=== PATIENT | male | born 1955 | race Caucasian/White ===

== ENCOUNTER → 2018-08-19 | Outpatient (CLI) | payer BC ==
--- NOTE | 2018-08-19 10:18 | RAD ---
EXAM: MRI RIGHT ELBOW DATE: 08/19/2018 8:15 AM CLINICAL INDICATION: CHRONIC WORSENING ELBOW PAIN, SUSPECTED LOOSE BODY FRAGMENTS, NO SX HX, NO PRIORS COMPARISON: Right elbow radiographs 07/13/2018 TECHNIQUE: Multiplanar multisequence MR imaging of the right elbow was performed without contrast. FINDINGS: Small right elbow joint effusion. A 7 mm joint body is suspected within the posterior olecranon fossa, although evaluation is limited given adjacent fat. Renal calculus or arthritis is seen with associated proliferative changes at the coronoid and olecranon process, as well as at the radial neck and lateral condyle. Intermittent chondral thinning most prominent laterally with subchondral cystic changes also seen. Old avulsion injury of the medial epicondyle at the posterior band ulnar collateral ligament attachment. No evidence for acute ulnar collateral ligament tear. There is mild edema at the common flexor attachment likely mild tendinosis. No discrete tear is identified. There is moderate edema and thickening at the lateral epicondyle attachment of the common extensor tendon origin consistent with moderate tendinosis. The radial collateral ligament and lateral ulnar collateral ligament are grossly intact. Biceps tendon is intact with normal signal and morphology. Triceps tendon is intact with normal signal and morphology. IMPRESSION: 1. 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 2. Small right elbow joint effusion with a small joint body suspected at the posterior olecranon fossa. 3. Moderate tendinosis at the common extensor tendon origin and mild tendinosis of the common flexor tendon origin. 4. Old medial epicondylar avulsion injury. Electronically signed by: Devan Cardozo MD (08/19/2018 10:15 AM) [facility]
== END | disposition home or self-care (01) ==
LOC: MRI 07:46
PROVIDERS: ATTEND Orthopaedic Surgery Sports Medicine
DX: M19.021 Primary osteoarthritis, right elbow (principal); M25.721 Osteophyte, right elbow; M77.01 Medial epicondylitis, right elbow; M25.421 Effusion, right elbow
CPT/HCPCS: 73221

== ENCOUNTER → 2018-12-30 | Outpatient (CLI) | payer BC ==
[2018-12-30 09:56] LABS: HEMATOCRIT 40.1 % (39.0-53.0); HEMOGLOBIN 13.5 g/dL (13.0-17.5); RED BLOOD COUNT 4.78 x10^6/uL (4.30-5.70); WHITE BLOOD COUNT 5.5 x10^3/uL (4.0-11.0)
[2018-12-30 10:18] LABS: ALBUMIN 3.6 g/dL (3.4-5.0); CALCIUM 8.9 mg/dL (8.5-10.1); POTASSIUM 3.9 mmol/L (3.5-5.1); TOTAL BILIRUBIN 0.6 mg/dL (0.2-1.0); TOTAL PROTEIN 7.1 g/dL (6.4-8.2)
[2018-12-30 10:19] LABS: CHOLESTEROL/HDL RATIO 4.3
[2018-12-30 20:11] LABS: HEMOGLOBIN A1C 5.7 % (4.8-5.6)
== END | disposition home or self-care (01) ==
LOC: LAB 09:33
PROVIDERS: ATTEND Family Medicine
DX: E78.5 Hyperlipidemia, unspecified (principal); R73.02 Impaired glucose tolerance (oral)
CPT/HCPCS: 36415; 80053; 80061; 83036; 85027

== ENCOUNTER 2019-07-01 04:11 | Emergency (ER) | payer BC ==
[~2019-07-01] VITALS: Ht 172.7 cm; Wt 90.7 kg
[2019-07-01 04:29] LABS: BILIRUBIN,URINE NEGATIVE (NEG); CLARITY,URINE CLEAR; COLOR,URINE YELLOW; NITRITE,URINE NEGATIVE (NEG); PH,URINE 5.5; PROTEIN,URINE NEGATIVE (NEG-TRACE)
[2019-07-01 04:34] LABS: BASO # 0.1 x10^3/uL (0.0-0.2); BASO % 1 % (0-3); EOS # 0.2 x10^3/uL (0.0-0.7); EOS % 3 % (0-3); HEMATOCRIT 42.4 % (39.0-53.0); HEMOGLOBIN 14.4 g/dL (13.0-17.5); LYMPH # 1.5 x10^3/uL (1.0-4.8); LYMPH % 22 % (24-48); MEAN CORPUSCULAR HEMOGLOBIN 28 pg (25-35); MEAN CORPUSCULAR HGB CONC 34 g/dL (31-37); MEAN CORPUSCULAR VOLUME 84 fL (79-100); MONO # 0.4 x10^3/uL (0.0-1.1); MONO % 6 % (0-9); NEUT # 4.5 x10^3/uL (1.8-7.7); NEUT % 69 % (31-73); PLATELET COUNT 145 x10^3/uL (140-400); RED BLOOD COUNT 5.09 x10^6/uL (4.30-5.70); RED CELL DISTRIBUTION WIDTH 13.8 % (11.5-14.5); WHITE BLOOD COUNT 6.6 x10^3/uL (4.0-11.0)
[2019-07-01 04:40] LABS: SQUAMOUS EPITHELIAL CELL,UR OCC /LPF
[2019-07-01 04:42] LABS: CALCIUM 8.8 mg/dL (8.5-10.1); CREATININE 1.1 mg/dL (0.7-1.3); GFR 67.8; POTASSIUM 3.6 mmol/L (3.5-5.1)
[2019-07-01 04:42] LABS: BACTERIA,URINE 0 /HPF (0-FEW); RBC,URINE 0 /HPF (0-2)
[2019-07-01 04:47] LABS: ALBUMIN 3.8 g/dL (3.4-5.0); ALBUMIN/GLOBULIN RATIO 1.2 (1.0-1.7); TOTAL BILIRUBIN 0.5 mg/dL (0.2-1.0)
[2019-07-01] MEDS ORDERED: MORPHINE SULFATE 4 MG/ML VIAL. IV ONE (05:00)
--- NOTE | 2019-07-01 05:11 | RAD ---
EXAM: CT Abdomen and Pelvis without IV contrast CLINICAL HISTORY: Left flank pain, history of nephrolithiasis.. COMPARISON: none TECHNIQUE: Helical CT of the abdomen and pelvis without intravenous contrast. Axial, coronal and sagittal reformatted images were generated. PQRS compliance statement - One or more of the following individualized dose reduction techniques were utilized for this study: 1. Automated exposure control 2. Adjustment of the mA and/or kV according to patient size 3. Use of iterative reconstruction technique FINDINGS: Lack of intravenous contrast limits evaluation of solid organs, vasculature, and lymph nodes. Lower chest: Lung bases are clear. Abdomen and Pelvis: Hepatic hypoattenuation may be seen with hepatic steatosis. Cholecystectomy clips are seen. No biliary ductal dilatation. Pancreas is unremarkable. Spleen is normal in appearance. Adrenal glands are normal. No focal renal lesion. Punctate left lower pole nonobstructing renal calculus. No hydronephrosis or hydroureter. Mild bladder wall thickening may be seen with cystitis. Moderate to large volume colonic stool content is seen. No abdominal or pelvic ascites. No abdominal or pelvic lymphadenopathy. No evidence for bowel obstruction. Aorta is normal in caliber with intermittent atherosclerotic calcifications. Bones: Multilevel degenerative changes of the spine are seen. No aggressive osseous lesion. IMPRESSION: 1. Punctate nonobstructing left lower pole renal calculus. No definite ureteral or bladder calculus. 2. Mild bladder wall thickening may be seen with cystitis. 3. No evidence of bowel obstruction. 4. Hepatic hypoattenuation likely hepatic steatosis. Electronically signed by: Devan Cardozo MD (07/01/2019 5:08 AM) [facility]
[2019-07-01 05:21] VITALS: BP 156/79
[2019-07-01] MEDS ORDERED: CEPH500C PO (05:26)
[2019-07-01] MEDS ORDERED: GABA300C18 PO (05:26)
--- NOTE | 2019-07-01 05:31 | PHYS DOC ---
Past Medical History Past Medical History: High Cholesterol, Other Additional Past Medical Histor: bilateral carpal tunnel, bulging discs, bone spur Past Surgical History: Appendectomy, Cholecystectomy, Tonsillectomy, Other Additional Past Surgical Histo: left carpal tunnel release Alcohol Use: Occasionally Drug Use: None Adult General Chief Complaint Chief Complaint: FLANK PAIN HPI HPI Patient is a 64 year old male who presents with left flank pain onset about 2 days ago radiates around to the groin area, starts in the back is have a history of chronic pain he is on a fentanyl patch he is on oral breakthrough pain medication he does have bad back and also bilateral carpal tunnel no vomiting he does feel nauseous no trouble urinating no prior history of kidney stone has never really had pain in this location before no acute injury noted All other ROS neg unless otherwise noted in HPI Review of Systems Review of Systems SEE ABOVE Current Medications Current Medications Current Medications Medications (Trade) Dose Ordered Sig/Tesfaye Start Time Stop Time Status Last Admin Dose Admin Morphine Sulfate (Morphine Sulfate) 4 mg 1X ONCE 07/01/19 05:00 07/01/19 05:01 DC 07/01/19 04:52 4 MG Allergies Allergies Allergies Coded Allergies Type Severity Reaction Last Updated Verified acetaminophen Allergy Mild nausea and vomiting 07/01/19 Yes ketorolac Allergy Mild nausea and vomiting 07/01/19 Yes meperidine Allergy Mild nausea and vomiting 07/01/19 Yes oxycodone Allergy Mild nausea and vomiting 07/01/19 Yes Physical Exam Physical Exam see above Constitutional: Well developed, well nourished, no acute distress, non-toxic appearance. [] HENT: Normocephalic, atraumatic, bilateral external ears normal, oropharynx moist, no oral exudates, nose normal. [] Eyes: PERRLA, EOMI, conjunctiva normal, no discharge. [] Neck: Normal range of motion, no tenderness, supple, no stridor. [] Cardiovascular:Heart rate regular rhythm, no murmur [] Lungs & Thorax: Bilateral breath sounds clear to auscultation [] Abdomen: Bowel sounds normal, soft, MILD LEFT LATERAL MID ABDOMINAL TTP NOTEDno masses, no pulsatile masses. [] Skin: Warm, dry, no erythema, no rash. [] Back: MILD LEFT CVA TTP NOTED Extremities: No tenderness, no cyanosis, no clubbing, ROM intact, no edema. [] Neurologic: Alert and oriented X 3, normal motor function, normal sensory function, no focal deficits noted. [] Psychologic: Affect normal, judgement normal, mood normal. [] Current Patient Data Vital Signs Vital Signs Date Time Temp Pulse Resp B/P (MAP) Pulse Ox O2 Delivery O2 Flow Rate FiO2 07/01/19 04:52 Room Air 07/01/19 04:15 98.9 72 20 183/92 (122) 97 98.9 Lab Values Laboratory Tests Test 07/01/19 04:15 07/01/19 04:30 Urine Collection Type Unknown Urine Color Yellow Urine Clarity Clear Urine pH 5.5 Urine Specific [place] 1.015 Urine Protein Negative mg/dL (NEG-TRACE) Urine Glucose (UA) Negative mg/dL (NEG) Urine Ketones (Stick) Negative mg/dL (NEG) Urine Blood Negative (NEG) Urine Nitrite Negative (NEG) Urine Bilirubin Negative (NEG) Urine Urobilinogen Dipstick 1.0 mg/dL (0.2 mg/dL) Urine Leukocyte Esterase Negative (NEG) Urine RBC 0 /HPF (0-2) Urine WBC 1-4 /HPF (0-4) Urine Squamous Epithelial Cells Occ /LPF Urine Bacteria 0 /HPF (0-FEW) Urine Mucus Mod /LPF White Blood Count 6.6 x10^3/uL (4.0-11.0) Red Blood Count 5.09 x10^6/uL (4.30-5.70) Hemoglobin 14.4 g/dL (13.0-17.5) Hematocrit 42.4 % (39.0-53.0) Mean Corpuscular Volume 84 fL (79-100) Mean Corpuscular Hemoglobin 28 pg (25-35) Mean Corpuscular Hemoglobin Concent 34 g/dL (31-37) Red Cell Distribution Width 13.8 % (11.5-14.5) Platelet Count 145 x10^3/uL (140-400) Neutrophils (%) (Auto) 69 % (31-73) Lymphocytes (%) (Auto) 22 % (24-48) L Monocytes (%) (Auto) 6 % (0-9) Eosinophils (%) (Auto) 3 % (0-3) Basophils (%) (Auto) 1 % (0-3) Neutrophils # (Auto) 4.5 x10^3/uL (1.8-7.7) Lymphocytes # (Auto) 1.5 x10^3/uL (1.0-4.8) Monocytes # (Auto) 0.4 x10^3/uL (0.0-1.1) Eosinophils # (Auto) 0.2 x10^3/uL (0.0-0.7) Basophils # (Auto) 0.1 x10^3/uL (0.0-0.2) Sodium Level 142 mmol/L (136-145) Potassium Level 3.6 mmol/L (3.5-5.1) Chloride Level 105 mmol/L (98-107) Carbon Dioxide Level 26 mmol/L (21-32) Anion Gap 11 (6-14) Blood Urea Nitrogen 12 mg/dL (8-26) Creatinine 1.1 mg/dL (0.7-1.3) Estimated GFR (Cockcroft-Gault) 67.8 BUN/Creatinine Ratio 11 (6-20) Glucose Level 112 mg/dL (70-99) H Calcium Level 8.8 mg/dL (8.5-10.1) Total Bilirubin 0.5 mg/dL (0.2-1.0) Aspartate Amino Transferase (AST) 33 U/L (15-37) Alanine Aminotransferase (ALT) 55 U/L (16-63) Alkaline Phosphatase 84 U/L (46-116) Total Protein 7.0 g/dL (6.4-8.2) Albumin 3.8 g/dL (3.4-5.0) Albumin/Globulin Ratio 1.2 (1.0-1.7) Laboratory Tests 07/01/19 04:30 Laboratory Tests 07/01/19 04:30 EKG EKG [] Radiology/Procedures Radiology/Procedures [] Impressions: IMPRESSION: 1. Punctate nonobstructing left lower pole renal calculus. No definite ureteral or bladder calculus. 2. Mild bladder wall thickening may be seen with cystitis. 3. No evidence of bowel obstruction. 4. Hepatic hypoattenuation likely hepatic steatosis. Electronically signed by: Devan Cardozo MD (07/01/2019 5:08 AM) [facility] Course & Med Decision Making Course & Med Decision Making Pertinent Labs and Imaging studies reviewed. (See chart for details) []64-year-old male chronic pain on fentanyl patches as well as other pain medication at home presenting with left flank pain some concern for kidney stone CT scan noted above no ureteral stone identified. White blood cells in the urine 1-4 with possible cystitis finding on CT I think given symptomatology w arrants antibiotics in case of clinical UTI. Unclear as exact etiology of pain could be referred pain from the back try gabapentin asked him to follow up with primary care doctor within 1 week for reevaluation of pain. Patient is neurologically intact at this time Dragon Disclaimer Dragon Disclaimer This electronic medical record was generated, in whole or in part, using a voice recognition dictation system. Departure Departure Impression: Primary Impression: CALCULUS OF KIDNEY Disposition: HOME, SELF-CARE Condition: STABLE Patient Instructions: Flank Pain, [id number] Scripts Gabapentin (GABAPENTIN ) 300 Mg Capsule 300 MG PO TID for NEUROGENIC PAIN for 10 Days, #30 CAP Prov: SOPHIE MACHADO MD 07/01/19 Cephalexin (CEPHALEXIN) 500 Mg Capsule 1 CAP PO TID, #30 CAP Prov: SOPHIE MACHADO MD 07/01/19 SOPHIE MACHADO MD Jul 01, 2019 05:31
== END 2019-07-01 05:42 | disposition home or self-care (01) ==
LOC: ER 04:11
DX: N20.0 Calculus of kidney (principal); G89.29 Other chronic pain; E78.00 Pure hypercholesterolemia, unspecified; Z90.89 Acquired absence of other organs; Z90.49 Acquired absence of other specified parts of digestive tract; Z88.1 Allergy status to other antibiotic agents; Z88.5 Allergy status to narcotic agent; Z88.6 Allergy status to analgesic agent
CPT/HCPCS: 36415; 74176; 80053; 81001; 85025; 96374; 99285; J2270

== ENCOUNTER 2019-08-04 10:51 | Emergency (ER) | payer BC ==
[~2019-08-04] VITALS: Ht 180.3 cm; Wt 90.7 kg
[~2019-08-04 10:51] MED LIST: CEPH500C PO; GABA300C18 PO
[2019-08-04] MEDS ORDERED: IV NORMAL SALINE 1000ML BAG 1,000 ML IV ONE (11:15)
[2019-08-04] MEDS ORDERED: ONDANSETRON PF 4 MG/2 ML VIAL. IV ONE (11:15)
[2019-08-04] MEDS ORDERED: MORPHINE SULFATE 10 MG/ML VIAL. IV ONE (11:15)
[2019-08-04 11:27] LABS: BASO % 0 % (0-3); EOS % 0 % (0-3); HEMATOCRIT 45.2 % (39.0-53.0); HEMOGLOBIN 15.6 g/dL (13.0-17.5); LYMPH # 0.9 x10^3/uL (1.0-4.8); LYMPH % 12 % (24-48); MEAN CORPUSCULAR HEMOGLOBIN 28 pg (25-35); MEAN CORPUSCULAR HGB CONC 35 g/dL (31-37); MEAN CORPUSCULAR VOLUME 82 fL (79-100); MONO # 0.4 x10^3/uL (0.0-1.1); MONO % 6 % (0-9); NEUT # 5.9 x10^3/uL (1.8-7.7); NEUT % 81 % (31-73); PLATELET COUNT 160 x10^3/uL (140-400); RED BLOOD COUNT 5.53 x10^6/uL (4.30-5.70); RED CELL DISTRIBUTION WIDTH 13.8 % (11.5-14.5); WHITE BLOOD COUNT 7.2 x10^3/uL (4.0-11.0)
[2019-08-04 11:39] LABS: CALCIUM 8.9 mg/dL (8.5-10.1); CREATININE 1.1 mg/dL (0.7-1.3); GFR 67.8
[2019-08-04 11:45] LABS: ALBUMIN 4.4 g/dL (3.4-5.0); ALBUMIN/GLOBULIN RATIO 1.2 (1.0-1.7); TOTAL BILIRUBIN 0.5 mg/dL (0.2-1.0); TOTAL PROTEIN 8.2 g/dL (6.4-8.2)
--- NOTE | 2019-08-04 11:50 | RAD ---
ABDOMEN LTD History: Abdominal pain. Comparison: None. Technique: Transabdominal ultrasound images are obtained of the right upper quadrant. Findings: Visualized pancreas is not well seen due to overlying bowel gas. Liver is increased in echogenicity. Right hepatic lobe measures 15.4 cm. Portal flow is hepatopedal. Prior cholecystectomy. Common bile duct caliber is normal measuring 5 mm in diameter. The right kidney measures 9.4 x 4.7 x 4.3 cm in length and is without evidence of obstruction or stone. Patent IVC. IMPRESSION: 1. Hepatic steatosis. 2. Prior cholecystectomy. Electronically signed by: Shaquille Benjamin DO (08/04/2019 11:48 AM) [facility]
[2019-08-04] MEDS ORDERED: POTASSIUM CHLORIDE 20 MEQ TABLET.ER. PO ONE (13:00)
[2019-08-04 13:09] LABS: BILIRUBIN,URINE NEGATIVE (NEG); CLARITY,URINE CLEAR; COLOR,URINE YELLOW; NITRITE,URINE NEGATIVE (NEG); PH,URINE 5.5; PROTEIN,URINE NEGATIVE (NEG-TRACE); UROBILINOGEN,URINE 0.2 mg/dL (0.2 mg/dL)
[2019-08-04 13:21] LABS: BACTERIA,URINE 0 /HPF (0-FEW); RBC,URINE 0 /HPF (0-2); SQUAMOUS EPITHELIAL CELL,UR OCC /LPF; WBC,URINE OCC /HPF (0-4)
[2019-08-04 13:22] LABS: BARBITURATES NEG (NEG); BENZODIAZEPINES NEG (NEG); CANNABINOIDS POS (NEG); COCAINE NEG (NEG); METHADONE NEG (NEG); OPIATES POS (NEG); PHENCYCLIDINE NEG (NEG)
[2019-08-04 13:23] LABS: AMPHETAMINE/METHAMPHETAMINE NEG (NEG)
[2019-08-04] MEDS ORDERED: CONTRAST GIVEN. MC PRN (13:30)
[2019-08-04] MEDS ORDERED: IOHEXOL 300 MG/ML 100ML VIAL. IV ONE (13:30)
--- NOTE | 2019-08-04 13:54 | RAD ---
EXAM: CT Abdomen and Pelvis with IV contrast CLINICAL HISTORY: Abdominal pain and diarrhea. COMPARISON: 07/01/2019 TECHNIQUE: Helical CT of the abdomen and pelvis was performed following the administration of intravenous contrast. Axial, coronal and sagittal reformatted images were generated. PQRS compliance statement - One or more of the following individualized dose reduction techniques were utilized for this study: 1. Automated exposure control 2. Adjustment of the mA and/or kV according to patient size 3. Use of iterative reconstruction technique FINDINGS: Lower chest: Lung bases are clear Abdomen and Pelvis: Hepatic hypoattenuation may be seen with hepatic steatosis. Cholecystectomy clips are seen. No biliary ductal dilatation. Pancreas is unremarkable. Spleen is normal in appearance. Adrenal glands are unremarkable. Symmetric nephrograms. No focal renal lesion. No hydronephrosis. No hydroureter. Bladder is unremarkable. Prostate is enlarged measuring 5.2 cm in transverse dimension. No abdominal or pelvic lymphadenopathy. No abdominal pelvic ascites. Colonic diverticula are seen without evidence for acute diverticulitis. Appendix is not seen. No evidence of bowel obstruction. No evidence for bowel obstruction. Bones: Degenerative changes of the spine are seen. No aggressive osseous lesion. IMPRESSION: 1. Hepatic hypoattenuation likely hepatic steatosis. 2. Colonic diverticulosis without evidence for acute diverticulitis. 3. No abdominal or pelvic ascites. 4. Appendix is not seen Electronically signed by: Devan Cardozo MD (08/04/2019 1:51 PM) [facility]
--- NOTE | 2019-08-04 15:02 | PHYS DOC ---
Past Medical History Past Medical History: High Cholesterol, Other Additional Past Medical Histor: bilateral carpal tunnel, bulging discs, bone spur Past Surgical History: Appendectomy, Cholecystectomy, Tonsillectomy, Other Additional Past Surgical Histo: left carpal tunnel release Alcohol Use: Occasionally Drug Use: None Adult General Chief Complaint Chief Complaint: DIARRHEA HPI HPI Patient is a 64 year old male with history of high cholesterol who presents to the ED today complaining of a 3 out of 10 generalized abdominal pain with diarrhea that began 4 days ago. Patient is also complaining of episodes of nausea with no vomiting. Denies any fever. Denies any hematemesis. He states he was seen in the ED a month ago and was diagnosed with gallstones which he states he is going to follow-up with his PCP in a couple days. Denies any exacerbating or relieving factors to his symptoms. Review of Systems Review of Systems Constitutional: Denies fever or chills [] Eyes: Denies change in visual acuity, redness, or eye pain [] HENT: Denies nasal congestion or sore throat [] Respiratory: Denies cough or shortness of breath [] Cardiovascular: No additional information not addressed in HPI [] GI: Reports generalized abdominal pain, diarrhea, nausea, denies any vomiting : Denies dysuria or hematuria [] Musculoskeletal: Denies back pain or joint pain [] Integument: Denies rash or skin lesions [] Neurologic: Denies headache, focal weakness or sensory changes [] All other systems were reviewed and found to be within normal limits, except as documented in this note. Current Medications Current Medications Current Medications Medications (Trade) Dose Ordered Sig/Tesfaye Start Time Stop Time Status Last Admin Dose Admin Info (CONTRAST GIVEN -- Rx MONITORING) 1 each PRN DAILY PRN 08/04/19 13:30 08/06/19 13:29 Iohexol (Omnipaque 300 Mg/ml) 75 ml 1X ONCE 08/04/19 13:30 08/04/19 13:31 DC 08/04/19 13:30 75 ML Morphine Sulfate (Morphine Sulfate) 5 mg 1X ONCE 08/04/19 11:15 08/04/19 11:16 DC 08/04/19 11:39 5 MG Ondansetron HCl (Zofran) 4 mg 1X ONCE 08/04/19 11:15 08/04/19 11:16 DC 08/04/19 11:39 4 MG Potassium Chloride (Klor-Con) 40 meq 1X ONCE 08/04/19 13:00 08/04/19 13:01 DC 08/04/19 13:42 40 MEQ Sodium Chloride 1,000 ml @ 1,000 mls/hr 1X ONCE 08/04/19 11:15 08/04/19 12:14 DC 08/04/19 11:39 1,000 MLS/HR Allergies Allergies Allergies Coded Allergies Type Severity Reaction Last Updated Verified ketorolac Allergy Mild nausea and vomiting 07/01/19 Yes meperidine Allergy Mild nausea and vomiting 07/01/19 Yes propoxyphene Allergy Mild nausea and vomiting 07/01/19 Yes Physical Exam Physical Exam Constitutional: Well developed, well nourished, no acute distress, non-toxic appearance. [] HENT: Normocephalic, atraumatic, bilateral external ears normal, oropharynx [address], no oral exudates, nose normal. [] Eyes: PERRLA, EOMI, conjunctiva normal, no discharge. [] Neck: Normal range of motion, no tenderness, supple, no stridor. [] Cardiovascular:Heart rate regular rhythm, no murmur [] Lungs & Thorax: Bilateral breath sounds clear to auscultation [] Abdomen: Bowel sounds normal, soft, diffuse tenderness throughout the abdomen, no point tenderness the right upper quadrant or right lower quadrant, negative Bassett sign, negative psoas sign no masses, no pulsatile masses. [] Skin: Warm, dry, no erythema, no rash. [] Back: No tenderness, no CVA tenderness. [] Extremities: No tenderness, no cyanosis, no clubbing, ROM intact, no edema. [] Neurologic: Alert and oriented X 3, normal motor function, normal sensory function, no focal deficits noted. [] Psychologic: Affect normal, judgement normal, mood normal. [] Current Patient Data Vital Signs Vital Signs Date Time Temp Pulse Resp B/P (MAP) Pulse Ox O2 Delivery O2 Flow Rate FiO2 08/04/19 14:11 74 18 164/64 (97) 99 Room Air 08/04/19 11:05 98.2 98.2 Lab Values Laboratory Tests Test 08/04/19 11:10 08/04/19 13:00 White Blood Count 7.2 x10^3/uL (4.0-11.0) Red Blood Count 5.53 x10^6/uL (4.30-5.70) Hemoglobin 15.6 g/dL (13.0-17.5) Hematocrit 45.2 % (39.0-53.0) Mean Corpuscular Volume 82 fL (79-100) Mean Corpuscular Hemoglobin 28 pg (25-35) Mean Corpuscular Hemoglobin Concent 35 g/dL (31-37) Red Cell Distribution Width 13.8 % (11.5-14.5) Platelet Count 160 x10^3/uL (140-400) Neutrophils (%) (Auto) 81 % (31-73) H Lymphocytes (%) (Auto) 12 % (24-48) L Monocytes (%) (Auto) 6 % (0-9) Eosinophils (%) (Auto) 0 % (0-3) Basophils (%) (Auto) 0 % (0-3) Neutrophils # (Auto) 5.9 x10^3/uL (1.8-7.7) Lymphocytes # (Auto) 0.9 x10^3/uL (1.0-4.8) L Monocytes # (Auto) 0.4 x10^3/uL (0.0-1.1) Eosinophils # (Auto) 0.0 x10^3/uL (0.0-0.7) Basophils # (Auto) 0.0 x10^3/uL (0.0-0.2) Sodium Level 138 mmol/L (136-145) Potassium Level 3.0 mmol/L (3.5-5.1) L Chloride Level 102 mmol/L (98-107) Carbon Dioxide Level 23 mmol/L (21-32) Anion Gap 13 (6-14) Blood Urea Nitrogen 16 mg/dL (8-26) Creatinine 1.1 mg/dL (0.7-1.3) Estimated GFR (Cockcroft-Gault) 67.8 BUN/Creatinine Ratio 15 (6-20) Glucose Level 141 mg/dL (70-99) H Calcium Level 8.9 mg/dL (8.5-10.1) Total Bilirubin 0.5 mg/dL (0.2-1.0) Aspartate Amino Transferase (AST) 22 U/L (15-37) Alanine Aminotransferase (ALT) 32 U/L (16-63) Alkaline Phosphatase 88 U/L (46-116) Total Protein 8.2 g/dL (6.4-8.2) Albumin 4.4 g/dL (3.4-5.0) Albumin/Globulin Ratio 1.2 (1.0-1.7) Ethyl Alcohol Level < 10 mg/dL (0-10) Urine Collection Type Unknown Urine Color Yellow Urine Clarity Clear Urine pH 5.5 Urine Specific [place] 1.020 Urine Protein Negative mg/dL (NEG-TRACE) Urine Glucose (UA) Negative mg/dL (NEG) Urine Ketones (Stick) Trace mg/dL (NEG) Urine Blood Negative (NEG) Urine Nitrite Negative (NEG) Urine Bilirubin Negative (NEG) Urine Urobilinogen Dipstick 0.2 mg/dL (0.2 mg/dL) Urine Leukocyte Esterase Negative (NEG) Urine RBC 0 /HPF (0-2) Urine WBC Occ /HPF (0-4) Urine Squamous Epithelial Cells Occ /LPF Urine Bacteria 0 /HPF (0-FEW) Urine Mucus Mod /LPF Urine Opiates Screen Pos (NEG) Urine Methadone Screen Neg (NEG) Urine Barbiturates Neg (NEG) Urine Phencyclidine Screen Neg (NEG) Urine Amphetamine/Methamphetamine Neg (NEG) Urine Benzodiazepines Screen Neg (NEG) Urine Cocaine Screen Neg (NEG) Urine Cannabinoids Screen Pos (NEG) Urine Ethyl Alcohol Neg (NEG) Laboratory Tests 08/04/19 11:10 Laboratory Tests 08/04/19 11:10 EKG EKG [] Radiology/Procedures Radiology/Procedures []PROCEDURE: ABDOMEN LTD ABDOMEN [facility] History: Abdominal pain. Comparison: None. Technique: Transabdominal ultrasound images are obtained of the right upper quadrant. Findings: Visualized pancreas is not well seen due to overlying bowel gas. Liver is increased in echogenicity. Right hepatic lobe measures 15.4 cm. Portal flow is hepatopedal. Prior cholecystectomy. Common bile duct caliber is normal measuring 5 mm in diameter. The right kidney measures 9.4 x 4.7 x 4.3 cm in length and is without evidence of obstruction or stone. Patent IVC. IMPRESSION: 1. Hepatic steatosis. 2. Prior cholecystectomy. Electronically signed by: Shaquille Benjamin DO (08/04/2019 11:48 AM) [facility] DICTATED and SIGNED BY: SHAQUILLE BENJAMIN DO DATE: 08/04/19 1148 PROCEDURE: CT ABD PELV W/ IV CONTRST ONLY EXAM: CT Abdomen and Pelvis with IV contrast CLINICAL HISTORY: Abdominal pain and diarrhea. COMPARISON: 07/01/2019 TECHNIQUE: Helical CT of the abdomen and pelvis was performed following the administration of intravenous contrast. Axial, coronal and sagittal reformatted images were generated. PQRS compliance statement - One or more of the following individualized dose reduction techniques were utilized for this study: 1. Automated exposure control 2. Adjustment of the mA and/or kV according to patient size 3. Use of iterative reconstruction technique FINDINGS: Lower chest: Lung bases are clear Abdomen and Pelvis: Hepatic hypoattenuation may be seen with hepatic steatosis. Cholecystectomy clips are seen. No biliary ductal dilatation. Pancreas is unremarkable. Spleen is normal in appearance. Adrenal glands are unremarkable. Symmetric nephrograms. No focal renal lesion. No hydronephrosis. No hydroureter. Bladder is unremarkable. Prostate is enlarged measuring 5.2 cm in transverse dimension. No abdominal or pelvic lymphadenopathy. No abdominal pelvic ascites. Colonic diverticula are seen without evidence for acute diverticulitis. Appendix is not seen. No evidence of bowel obstruction. No evidence for bowel obstruction. Bones: Degenerative changes of the spine are seen. No aggressive osseous lesion. IMPRESSION: 1. Hepatic hypoattenuation likely hepatic steatosis. 2. Colonic diverticulosis without evidence for acute diverticulitis. 3. No abdominal or pelvic ascites. 4. Appendix is not seen Electronically signed by: Devan Perez MD (08/04/2019 1:51 PM) [facility] DICTATED and SIGNED BY: DEVAN PEREZ MD DATE: 08/04/19 1355 Course & Med Decision Making Course & Med Decision Making Pertinent Labs and Imaging studies reviewed. (See chart for details) This is a 64-year-old male patient who presents to the ED today with diarrhea and generalized abdominal pain as well as nausea that began 4 days ago. Patient presents to the ED stating he was diagnosed with gallstones a couple weeks ago. We did a limited right upper quadrant ultrasound which was noted for cholecystectomy otherwise no acute findings. When I went to ask patient if he truly was diagnosed with gallstones considering his chart was noted for a CAT scan which showed intrarenal calculi. He states he was diagnosed with kidney stones not gallstones. Today's CT of the abdomen and pelvic is negative for any acute findings. Labs are negative. Urine negative. Discharged to home. Follow-up with the PCP. Brenda Disclaimer Brenda Disclaimer This electronic medical record was generated, in whole or in part, using a voice recognition dictation system. Departure Departure Impression: Primary Impression: Abdominal pain, generalized Additional Impression: Diarrhea Disposition: HOME, SELF-CARE Condition: STABLE Referrals: ANUSHKA NEWELL MD (PCP) Follow-up as scheduled Patient Instructions: Abdominal Pain (Nonspecific), Diarrhea, [id number] Additional Instructions: You were evaluated in the emergency room for generalized abdominal pain with diarrhea, please follow-up with your primary care doctor as scheduled. Come back to the ED at any point symptoms worsen. Scripts Ondansetron Hcl (ZOFRAN) 4 Mg Tablet 1 TAB PO Q6HRS, #20 TAB Prov: AYDEN BASSETT APRN 08/04/19 Dicyclomine Hcl (DICYCLOMINE HCL) 20 Mg Tablet 1 TAB PO TID, #30 TAB 1 Refill Prov: AYDEN BASSETT APRN 08/04/19 Problem Qualifiers Additional Impression: Diarrhea Diarrhea type: unspecified type Qualified Codes: R19.7 - Diarrhea, unspecified AYDEN BASSETT APRN Aug 04, 2019 15:02
[2019-08-04] MEDS ORDERED: DICY20TA3 PO (15:05)
[2019-08-04] MEDS ORDERED: ONDA4TAB7 PO (15:05)
[2019-08-04 15:11] VITALS: BP 161/85
== END 2019-08-04 14:50 | disposition home or self-care (01) ==
LOC: ER 10:51
DX: R19.7 Diarrhea, unspecified (principal); R10.84 Generalized abdominal pain; R11.0 Nausea; E78.00 Pure hypercholesterolemia, unspecified; Z90.49 Acquired absence of other specified parts of digestive tract; Z90.89 Acquired absence of other organs; Z88.1 Allergy status to other antibiotic agents; Z88.6 Allergy status to analgesic agent; Z88.8 Allergy status to other drugs, medicaments and biological substances
CPT/HCPCS: 36415; 74177; 76705; 80053; 80307; 81001; 85025; 96361; 96374; 96375; 99285; G0480; J2270; J2405; J7030; Q9967

== ENCOUNTER 2020-09-30 04:46 | Emergency (ER) | payer BC ==
[~2020-09-30] VITALS: Ht 172.7 cm; Wt 100.0 kg
[~2020-09-30 04:46] MED LIST changes: +DICY20TA3 PO; +ONDA4TAB7 PO
--- NOTE | 2020-09-30 07:00 | PHYS DOC ---
Past Medical History Past Medical History: High Cholesterol, Other Additional Past Medical Histor: bilateral carpal tunnel, bulging discs, bone spur Past Surgical History: Appendectomy, Cholecystectomy, Tonsillectomy, Other Additional Past Surgical Histo: left carpal tunnel release Smoking Status: Never Smoker Alcohol Use: Occasionally Drug Use: None General Adult EDM: Chief Complaint: HEADACHE HPI: HPI: 65-year-old male past medical history significant for hyperlipidemia and disc herniations, presents to the ED with complaints of dry cough and frontal gradual-onset headache that started last night, is concerned he has the flu. Patient is here with his who is also a patient with similar symptoms. Review of Systems: Review of Systems: Constitutional: Denies fever or chills. [] Eyes: Denies change in visual acuity. [] HENT: Denies nasal congestion or sore throat. [] Respiratory: Denies cough or shortness of breath. [] Cardiovascular: Denies chest pain or edema. [] GI: Denies abdominal pain, nausea, vomiting, bloody stools or diarrhea. [] : Denies dysuria. [] Musculoskeletal: Denies back pain or joint pain. [] Integument: Denies rash. [] Neurologic: Denies headache, focal weakness or sensory changes. [] Endocrine: Denies polyuria or polydipsia. [] Lymphatic: Denies swollen glands. [] Psychiatric: Denies depression or anxiety. [] Heart Score: Risk Factors: Risk Factors: DM, Current or recent (<one month) smoker, HTN, HLP, family history of CAD, obesity. Risk Scores: Score 0 - 3: 2.5% MACE over next 6 weeks - Discharge Home Score 4 - 6: 20.3% MACE over next 6 weeks - Admit for Clinical Observation Score 7 - 10: 72.7% MACE over next 6 weeks - Early Invasive Strategies Allergies: Allergies: Allergies Coded Allergies Type Severity Reaction Last Updated Verified ketorolac Allergy Mild nausea and vomiting 07/01/19 Yes meperidine Allergy Mild nausea and vomiting 07/01/19 Yes propoxyphene Allergy Mild nausea and vomiting 07/01/19 Yes Physical Exam: PE: Constitutional: Well developed, well nourished, no acute distress, non-toxic appearance. [] HENT: Normocephalic, atraumatic, bilateral external ears normal, oropharynx moist, no oral exudates, nose normal. [] Eyes: PERRLA, EOMI, conjunctiva normal, no discharge. [] Neck: Normal range of motion, no tenderness, supple, no stridor. [] Cardiovascular:Heart rate regular rhythm, no murmur [] Lungs & Thorax: Bilateral breath sounds clear to auscultation [] Abdomen: Bowel sounds normal, soft, no tenderness, no masses, no pulsatile masses. [] Skin: Warm, dry, no erythema, no rash. [] Back: No tenderness, no CVA tenderness. [] Extremities: No tenderness, no cyanosis, no clubbing, ROM intact, no edema. [] Neurologic: Alert and oriented X 3, normal motor function, normal sensory function, no focal deficits noted. [] Psychologic: Affect normal, judgement normal, mood normal. [] Current Patient Data: Vital Signs: Vital Signs Date Time Temp Pulse Resp B/P (MAP) Pulse Ox O2 Delivery O2 Flow Rate FiO2 09/30/20 05:55 98.6 96 96 98.6 09/30/20 04:51 20 144/87 (106) Room Air EKG: EKG: sinus rhythm at 84 bpm, NAD, normal intervals, no ST elevations or ST depressions, no T wave inversions or ischemia Radiology/Procedures: Radiology/Procedures: IMAGING REPORT Signed PATIENT: DIXON ROMERO ACCOUNT: [id number] : 1955 LOCATION: ER AGE: 65 SEX: M EXAM STATUS: REG ER ORD. PHYSICIAN: ALEJANDRA HITCHCOCK DO REASON: headache PROCEDURE: CT HEAD WO CONTRAST CT HEAD WO CONTRAST Date: 09/30/2020 7:24 AM Clinical Indication: headache / Spl. Instructions: / History: Comparison: None. Technique: 5 mm axial tomographic images were obtained of the head without contrast. These were viewed on brain and bone windows. One or more of the following dose reduction techniques were utilized: Automated exposure control (AEC), Adjustment of mA and/or kV according to patient size, Use of iterative reconstruction technique such as ASiR, CT scan done according to ALARA and image gently/image wisely Findings: The brain parenchyma is normal in attenuation. No intra- or extra-axial mass or fluid collection. No acute hemorrhage. The ventricles are normal in size, shape, and morphology. The singleton-white matter junction is normal. The subarachnoid cisterns are patent. The visualized paranasal sinuses are normal. The visualized portions of the orbits and globes are normal. The mastoid air cells are clear. The integrated circuits inspector topogram shows no lytic lesion or fracture. Impression: No acute intracranial process. Electronically signed by: Nic Murguia MD (09/30/2020 7:46 AM) [id number] DICTATED and SIGNED BY: NIC MURGUIA MD DATE: 09/30/20 0746 IMAGING REPORT Signed PATIENT: DIXON ROMERO ACCOUNT: [id number] : 1955 LOCATION: ER AGE: 65 SEX: M EXAM STATUS: REG ER ORD. PHYSICIAN: ALEJANDRA HITCHCOCK DO REASON: cough PROCEDURE: CHEST AP ONLY CHEST AP ONLY INDICATION: cough COMPARISON STUDY: None. FINDINGS: Lungs: Normal lung volume. No pulmonary mass or consolidation. The tracheobronchial tree and hilar structures are normal. Pleura: No pleural effusion or pneumothorax. Heart and Mediastinum: The cardiomediastinal silhouette is normal. The great vessels of the thorax are normal. Bones and Soft Tissues: The bones and soft tissues are within normal limits. IMPRESSION: No acute cardiopulmonary process. Electronically signed by: Nic Murguia MD (09/30/2020 7:44 AM) [id number] DICTATED and SIGNED BY: NIC MURGUIA MD DATE: 09/30/20 0744 Course & Med Decision Making: Course & Med Decision Making Pertinent Labs and Imaging studies reviewed. (See chart for details) Strict ED return precautions were given for []. Encouraged urgent outpatient follow-up with PMD and [specialist]. Life-threatening processes were considered but are low suspicion at this time, given history and physical exam. Pt was educated on all prescription medications and adverse effects. All patient's questions were answered and pt was stable at time of discharge. Life/limb-threatening differential includes but is not limited to, surgical abdomen (appendicitis, cholecystitis, diverticulitis, inflammatory bowel disease, abscess, perforation), meningitis, encephalitis, Ashu's angina, endocarditis, myocarditis, life-threatening rash (necrotizing fasciitis), gynecologic and urologic emergencies (endometritis, ovarian/testicular torsion, TOA, obstructive nephropathy, prostatitis), head and neck abscess, sepsis or shock, or respiratory failure. I spoken with the patient and her caregivers. I explained the patient's condition, diagnoses and treatment plan based on the information available to me at this time. I have answered the patient and her caregiver's questions and addressed any concerns. The patient and her caregivers have a good understanding of patient's diagnosis, condition and treatment plan as can be expected at this point. Vital signs have been stable. Patient's condition is stable and appropriate for discharge from the emergency department. Patient will pursue further outpatient evaluation with primary care physician or other designated or consulting physician as outlined in the discharge instructions. The patient and/or caregivers are agreeable to this plan of care and follow-up instructions have been explained in detail. The patient and/or caregivers have received these instructions in written form and have expressed an understanding of the discharge instructions. The patient and/or caregivers are aware that any significant change of condition or worsening of symptoms should prompt immediate return to this or the closest emergency department or call to 911. Brenda Disclaimer: Epocrates Disclaimer: This electronic medical record was generated, in whole or in part, using a voice recognition dictation system. Departure Departure Impression: Primary Impression: URI (upper respiratory infection) Disposition: 01 DC HOME SELF CARE/HOMELESS Condition: STABLE Referrals: ANUSHKA NEWELL MD (PCP) in 3-5 days Patient Instructions: Upper Respiratory Infection, Adult Additional Instructions: You have been tested for or diagnosed with COVID-19. It is an infection caused by a new type of coronavirus. COVID-19 will cause cold-like or mild flu symptoms in most. It can cause more severe symptoms like problems breathing in some. There is no treatment for COVID-19. The body will clear the infection over time. Self-care will help to ease discomfort. Steps to Take: Self-Care Rest as needed. Healthy habits may help you feel better. Steps include: Choose healthy foods including fruits and vegetables. Drink water throughout the day. Get plenty of sleep each night. If you smoke, try to quit. It may ease breathing. Avoid alcohol. Keep Others Healthy The virus can spread to others. Droplets are released every time you sneeze or cough. The droplets can get into the mouth, nose, or eyes of people near you and lead to infection. To lower the chances of spreading COVID-19 to others: Stay at home until your doctor has said it is safe to leave. If you tested positive this will mean staying isolated until both of the following are true: At least 7 days have passed since the start of illness. You are free of fever for at least 72 hours without the use of medicine. During this time: - Avoid public areas, events, or transportation. Do not return to work or school until your doctor has said it is safe to do so. - Call ahead if you need to go to a medical center. Let them know you may have COVID-19. It will help them guide you where to go. They may also ask you to wear a facemask when you come to the office. - If you call for emergency medical services, let them know you may have COVID- 19. While at home: - Try to avoid close contact with others. Stay about 6 feet away. - If possible, spend most of your time in a separate room from others. - Use a face mask if you will be in close contact with others such as sharing a room or vehicle. - Have someone wipe down common surfaces in the home. Use household medical liaison every day on areas like doorknobs, counters, or sinks. - Cough or sneeze into a tissue. Throw the tissue away right after use. If a tissue is not available, cough or sneeze into your elbow. - Wash your hands often. Wash them after sneezing or coughing. Use soap and water and wash for at least 20 seconds. Alcohol based hand cleaner signs can be used if soap and water is not available. - Do not prepare food for others. Avoid sharing personal items like forks, spoons, or toothbrushes. - Avoid close contact with pets while you are sick. There is no evidence of the virus passing to pets. This is a safety step until more is known about this virus. Isolation can be frustrating. Social interaction can help. Keep in touch with friends and family through phone and tech options. You can still interact with others in your home, just keep a safe distance of about 6 feet. Follow-up: Your doctors office will check in with you to see if there are any changes in your health. You may be asked to keep track of symptoms to share with them. They will also let you know when you are clear to be in public again. Problems to Look Out For: Contact your doctor if your recovery is not going as you expect. Get emergency care if you have problems such as: - Trouble breathing - Nonstop chest pain or pressure - Changes in awareness, confusion, or problems waking - Lips or face have bluish color - Worsening of symptoms If you think you have an emergency, call for emergency medical services right away. As taken from [facility],ALEJANDRA Padilla DO Sep 30, 2020 07:00
[2020-09-30] MEDS ORDERED: IV NORMAL SALINE 1000ML BAG 1,000 ML IV SCH (07:17)
[2020-09-30] MEDS ORDERED: DEXAMETHASONE SOD PHOS 20 MG/5 ML VIAL. IV ONE (07:30)
[2020-09-30] MEDS ORDERED: PROCHLORPERAZINE 10 MG/2 ML VIAL. IV ONE (07:30)
[2020-09-30] MEDS ORDERED: diphenhydrAMINE 50 MG/ML VIAL IVP ONE (07:30)
--- NOTE | 2020-09-30 07:48 | RAD ---
CHEST AP ONLY INDICATION: cough COMPARISON STUDY: None. FINDINGS: Lungs: Normal lung volume. No pulmonary mass or consolidation. The tracheobronchial tree and hilar structures are normal. Pleura: No pleural effusion or pneumothorax. Heart and Mediastinum: The cardiomediastinal silhouette is normal. The great vessels of the thorax are normal. Bones and Soft Tissues: The bones and soft tissues are within normal limits. IMPRESSION: No acute cardiopulmonary process. Electronically signed by: Preston Murguia MD (09/30/2020 7:44 AM) [id number]
--- NOTE | 2020-09-30 07:49 | RAD ---
CT HEAD WO CONTRAST Date: 09/30/2020 7:24 AM Clinical Indication: headache / Spl. Instructions: / History: Comparison: None. Technique: 5 mm axial tomographic images were obtained of the head without contrast. These were viewed on brain and bone windows. One or more of the following dose reduction techniques were utilized: Automated exposure control (AEC), Adjustment of mA and/or kV according to patient size, Use of iterative reconstruction technique such as ASiR, CT scan done according to ALARA and image gently/image wisely Findings: The brain parenchyma is normal in attenuation. No intra- or extra-axial mass or fluid collection. No acute hemorrhage. The ventricles are normal in size, shape, and morphology. The singleton-white matter junction is normal. The subarachnoid cisterns are patent. The visualized paranasal sinuses are normal. The visualized portions of the orbits and globes are normal. The mastoid air cells are clear. The handbag designer topogram shows no lytic lesion or fracture. Impression: No acute intracranial process. Electronically signed by: Preston Murguia MD (09/30/2020 7:46 AM) [id number]
[2020-09-30 08:17] LABS: BASO % 0 % (0-3); EOS % 1 % (0-3); HEMATOCRIT 42.4 % (39.0-53.0); HEMOGLOBIN 14.7 g/dL (13.0-17.5); LYMPH # 0.5 x10^3/uL (1.0-4.8); LYMPH % 11 % (24-48); MEAN CORPUSCULAR HEMOGLOBIN 29 pg (25-35); MEAN CORPUSCULAR HGB CONC 35 g/dL (31-37); MEAN CORPUSCULAR VOLUME 85 fL (79-100); MONO # 0.6 x10^3/uL (0.0-1.1); MONO % 13 % (0-9); NEUT # 3.7 x10^3/uL (1.8-7.7); NEUT % 75 % (31-73); PLATELET COUNT 141 x10^3/uL (140-400); RED BLOOD COUNT 4.99 x10^6/uL (4.30-5.70); RED CELL DISTRIBUTION WIDTH 13.6 % (11.5-14.5); WHITE BLOOD COUNT 4.9 x10^3/uL (4.0-11.0)
[2020-09-30 08:34] LABS: CALCIUM 9.2 mg/dL (8.5-10.1); CREATININE 1.1 mg/dL (0.7-1.3); GFR 67.6; POTASSIUM 4.2 mmol/L (3.5-5.1)
[2020-09-30 08:41] LABS: ALBUMIN 3.8 g/dL (3.4-5.0); ALBUMIN/GLOBULIN RATIO 1.2 (1.0-1.7); TOTAL BILIRUBIN 0.3 mg/dL (0.2-1.0); TOTAL PROTEIN 6.9 g/dL (6.4-8.2)
[2020-09-30 08:44] LABS: INFLUENZA A PATIENT NEGATIVE (NEGATIVE); INFLUENZA B PATIENT NEGATIVE (NEGATIVE)
[2020-09-30 09:37] VITALS: BP 147/78
[2020-09-30] MEDS ORDERED: ACETAMINOPHEN 500 MG TABLET PO ONE (09:45)
[2020-09-30] MEDS ORDERED: MORPHINE SULFATE 10 MG/ML VIAL. IV ONE (09:45)
[2020-09-30 10:04] LABS: BILIRUBIN,URINE NEGATIVE (NEG); CLARITY,URINE CLEAR; COLOR,URINE YELLOW; NITRITE,URINE NEGATIVE (NEG); PROTEIN,URINE NEGATIVE (NEG-TRACE); UROBILINOGEN,URINE 0.2 mg/dL (0.2 mg/dL)
[2020-09-30 10:19] LABS: BACTERIA,URINE 0 /HPF (0-FEW); RBC,URINE 0 /HPF (0-2); WBC,URINE 0 /HPF (0-4)
--- NOTE | 2020-10-01 14:25 | NUR ---
IP: Informed pt of positive COVID test and need to quarantine for 10-14 days. Pt verbalized understanding.
--- NOTE | 2020-10-01 16:56 | EKG ---
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
== END 2020-09-30 12:06 | disposition home or self-care (01) ==
LOC: ER 04:46
DX: U07.1 COVID-19 (principal); J06.9 Acute upper respiratory infection, unspecified; R51.9 Headache, unspecified; R05 Cough; E78.00 Pure hypercholesterolemia, unspecified; Z90.89 Acquired absence of other organs; Z90.49 Acquired absence of other specified parts of digestive tract; Z98.890 Other specified postprocedural states; Z88.8 Allergy status to other drugs, medicaments and biological substances; Z88.6 Allergy status to analgesic agent
CPT/HCPCS: 36415; 70450; 71045; 80053; 81001; 82550; 83605; 83735; 84484; 85025; 87040; 87804; 93005; 96361; 96374; 96375; 99285; C9803; J0780; J1100; J1200; J7030; U0003

== ENCOUNTER 2021-04-18 14:20 | Emergency (ER) | payer BC ==
[~2021-04-18] VITALS: Ht 172.7 cm; Wt 110.0 kg
[2021-04-18] MEDS ORDERED: IV NORMAL SALINE 1000ML BAG 1,000 ML IV ONE (15:45)
[2021-04-18] MEDS ORDERED: MORPHINE SULFATE 10 MG/ML VIAL. IV ONE (16:00)
[2021-04-18] MEDS ORDERED: ONDANSETRON PF 4 MG/2 ML VIAL. IVP ONE (16:00)
[2021-04-18 16:34] LABS: BASO # 0.1 x10^3/uL (0.0-0.2); BASO % 1 % (0-3); EOS % 0 % (0-3); HEMATOCRIT 43.6 % (39.0-53.0); HEMOGLOBIN 14.9 g/dL (13.0-17.5); LYMPH # 1.4 x10^3/uL (1.0-4.8); LYMPH % 17 % (24-48); MEAN CORPUSCULAR HEMOGLOBIN 29 pg (25-35); MEAN CORPUSCULAR HGB CONC 34 g/dL (31-37); MEAN CORPUSCULAR VOLUME 85 fL (79-100); MONO # 0.5 x10^3/uL (0.0-1.1); MONO % 6 % (0-9); NEUT # 5.9 x10^3/uL (1.8-7.7); NEUT % 76 % (31-73); PLATELET COUNT 173 x10^3/uL (140-400); RED BLOOD COUNT 5.14 x10^6/uL (4.30-5.70); RED CELL DISTRIBUTION WIDTH 13.8 % (11.5-14.5); WHITE BLOOD COUNT 7.8 x10^3/uL (4.0-11.0)
[2021-04-18 16:36] LABS: BILIRUBIN,URINE NEGATIVE (NEG); CLARITY,URINE CLEAR; COLOR,URINE YELLOW; NITRITE,URINE NEGATIVE (NEG); PROTEIN,URINE NEGATIVE (NEG-TRACE); UROBILINOGEN,URINE 0.2 mg/dL (0.2 mg/dL)
[2021-04-18 16:44] LABS: CALCIUM 9.4 mg/dL (8.5-10.1); CREATININE 1.1 mg/dL (0.7-1.3); GFR 67.4; POTASSIUM 3.7 mmol/L (3.5-5.1)
[2021-04-18 16:46] LABS: BACTERIA,URINE 0 /HPF (0-FEW); RBC,URINE 0 /HPF (0-2); WBC,URINE 0 /HPF (0-4)
[2021-04-18 16:50] LABS: ALBUMIN 4.4 g/dL (3.4-5.0); ALBUMIN/GLOBULIN RATIO 1.3 (1.0-1.7); TOTAL BILIRUBIN 0.6 mg/dL (0.2-1.0); TOTAL PROTEIN 7.7 g/dL (6.4-8.2)
[2021-04-18] MEDS ORDERED: IOHEXOL 300 MG/ML 100ML VIAL. IV ONE (17:00)
[2021-04-18] MEDS ORDERED: IOHEXOL 240 MG/ML 50ML VIAL. PO ONE (17:00)
[2021-04-18] MEDS ORDERED: CONTRAST GIVEN. MC PRN (17:00)
--- NOTE | 2021-04-18 17:06 | ED.ADGEN ---
Past Medical History Past Medical History: High Cholesterol, Other Additional Past Medical Histor: bilateral carpal tunnel, bulging discs, bone spur Past Surgical History: Appendectomy, Cholecystectomy, Tonsillectomy, Other Additional Past Surgical Histo: left carpal tunnel release Smoking Status: Never Smoker Alcohol Use: Occasionally Drug Use: None General Adult EDM: Chief Complaint: RECTAL BLEED HPI: HPI: Patient is a 66-year-old male who presents to the emergency room complaining of abdominal pain. Patient states that 2 weeks ago his dog jumped and landed on his abdomen. He states he has a 70 pound pitbull. He states that he initially had quite a bit of pain in his abdomen. This pain slowly went away. His states that for 3 days after this incident he did have black tarry stools. He then became constipated over the next week and took a large amount of laxatives a couple of days ago. He had several bowel movements yesterday. He states that he has had some minimal bleeding with these bowel movements. This is bright red blood. He states since then he has had severe diffuse abdominal pain that does not improve. He is on a fentanyl patch for chronic pain and states that this does not touch his pain. He denies any nausea or vomiting. Review of Systems: Review of Systems: Complete ROS is negative unless otherwise documented in HPI Current Medications: Current Medications Medications (Trade) Dose Ordered Sig/Tesfaye Start Time Stop Time Status Last Admin Dose Admin Hyoscyamine (Anaspaz) 0.25 mg 1X ONCE 04/18/21 18:15 04/18/21 18:16 Info (CONTRAST GIVEN -- Rx MONITORING) 1 each PRN DAILY PRN 04/18/21 17:00 04/20/21 16:59 Iohexol (Omnipaque 240 Mg/ml) 50 ml 1X ONCE 04/18/21 17:00 04/18/21 17:01 DC 04/18/21 16:58 50 ML Iohexol (Omnipaque 300 Mg/ml) 75 ml 1X ONCE 04/18/21 17:00 04/18/21 17:01 DC 04/18/21 16:58 75 ML Morphine Sulfate (Morphine Sulfate) 5 mg 1X ONCE 04/18/21 16:00 04/18/21 16:01 DC 04/18/21 16:32 5 MG Ondansetron HCl (Zofran) 4 mg 1X ONCE 04/18/21 16:00 04/18/21 16:01 DC 04/18/21 16:32 4 MG Sodium Chloride 1,000 ml @ 0 mls/hr Q0M ONCE 04/18/21 15:45 04/18/21 15:46 DC 04/18/21 16:31 999 MLS/HR Allergies: Allergies: Allergies Coded Allergies Type Severity Reaction Last Updated Verified ketorolac Adverse Reaction Mild nausea and vomiting 09/30/20 Yes meperidine Adverse Reaction Mild nausea and vomiting 09/30/20 Yes propoxyphene Adverse Reaction Mild nausea and vomiting 09/30/20 Yes Physical Exam: PE: General: Awake, alert, NAD. Well Nourished, well hydrated. Cooperative HEENT: Atraumatic, EOMI, PERRL, airway patent, moist oral mucosa Neck: Supple, trachea midline Respiratory: CTA bilaterally, normal effort, no wheezing/crackles CV: RRR, no murmur, cap refill <2 GI: Soft, nondistended, diffuse tenderness, no rebound, no guarding, no masses MSK: No obvious deformities Skin: Warm, dry, intact Neuro: A&O x3, speech NL, sensory and motor grossly intact, no focal deficits Psych: Normal affect, normal mood, not suicidal or homicidal Current Patient Data: Labs: Laboratory Tests Test 04/18/21 16:20 White Blood Count 7.8 x10^3/uL (4.0-11.0) Red Blood Count 5.14 x10^6/uL (4.30-5.70) Hemoglobin 14.9 g/dL (13.0-17.5) Hematocrit 43.6 % (39.0-53.0) Mean Corpuscular Volume 85 fL (79-100) Mean Corpuscular Hemoglobin 29 pg (25-35) Mean Corpuscular Hemoglobin Concent 34 g/dL (31-37) Red Cell Distribution Width 13.8 % (11.5-14.5) Platelet Count 173 x10^3/uL (140-400) Neutrophils (%) (Auto) 76 % (31-73) H Lymphocytes (%) (Auto) 17 % (24-48) L Monocytes (%) (Auto) 6 % (0-9) Eosinophils (%) (Auto) 0 % (0-3) Basophils (%) (Auto) 1 % (0-3) Neutrophils # (Auto) 5.9 x10^3/uL (1.8-7.7) Lymphocytes # (Auto) 1.4 x10^3/uL (1.0-4.8) Monocytes # (Auto) 0.5 x10^3/uL (0.0-1.1) Eosinophils # (Auto) 0.0 x10^3/uL (0.0-0.7) Basophils # (Auto) 0.1 x10^3/uL (0.0-0.2) Urine Collection Type Unknown Urine Color Yellow Urine Clarity Clear Urine pH 8.0 (<5.0-8.0) Urine Specific [place] <=1.005 (1.000-1.030) Urine Protein Negative mg/dL (NEG-TRACE) Urine Glucose (UA) Negative mg/dL (NEG) Urine Ketones (Stick) Trace mg/dL (NEG) Urine Blood Negative (NEG) Urine Nitrite Negative (NEG) Urine Bilirubin Negative (NEG) Urine Urobilinogen Dipstick 0.2 mg/dL (0.2 mg/dL) Urine Leukocyte Esterase Negative (NEG) Urine RBC 0 /HPF (0-2) Urine WBC 0 /HPF (0-4) Urine Bacteria 0 /HPF (0-FEW) Sodium Level 139 mmol/L (136-145) Potassium Level 3.7 mmol/L (3.5-5.1) Chloride Level 103 mmol/L (98-107) Carbon Dioxide Level 23 mmol/L (21-32) Anion Gap 13 (6-14) Blood Urea Nitrogen 12 mg/dL (8-26) Creatinine 1.1 mg/dL (0.7-1.3) Estimated GFR (Cockcroft-Gault) 67.4 BUN/Creatinine Ratio 11 (6-20) Glucose Level 99 mg/dL (70-99) Calcium Level 9.4 mg/dL (8.5-10.1) Total Bilirubin 0.6 mg/dL (0.2-1.0) Aspartate Amino Transferase (AST) 43 U/L (15-37) H Alanine Aminotransferase (ALT) 74 U/L (16-63) H Alkaline Phosphatase 75 U/L (46-116) Total Protein 7.7 g/dL (6.4-8.2) Albumin 4.4 g/dL (3.4-5.0) Albumin/Globulin Ratio 1.3 (1.0-1.7) Lipase 58 U/L (73-393) L Laboratory Tests 04/18/21 16:20 Laboratory Tests 04/18/21 16:20 Vital Signs: Vital Signs Date Time Temp Pulse Resp B/P (MAP) Pulse Ox O2 Delivery O2 Flow Rate FiO2 04/18/21 16:32 15 99 Room Air 04/18/21 16:00 98.7 84 170/84 (112) 98.7 EKG: EKG: [] Heart Score: C/O Chest Pain: N/A Risk Factors: Risk Factors: DM, Current or recent (<one month) smoker, HTN, HLP, family history of CAD, obesity. Risk Scores: Score 0 - 3: 2.5% MACE over next 6 weeks - Discharge Home Score 4 - 6: 20.3% MACE over next 6 weeks - Admit for Clinical Observation Score 7 - 10: 72.7% MACE over next 6 weeks - Early Invasive Strategies Radiology/Procedures: Radiology/Procedures: [] Course & Med Decision Making: Course & Med Decision Making Pertinent Labs and Imaging studies reviewed. (See chart for details) Patient is a 66 year-old male with a history of hypertension who presents to the Emergency Room complaining of abdominal pain and rectal bleeding. On exam, patient is diffusely tender with some possible minimal distention. Patient does not have signs of peritonitis. Due to patients history, age, and exam work up will need to be done to evaluate for intra-abdominal pathology. Work up ordered includes CBC, CMP, lipase, UA, CT abdomen and pelvis. Patient's pain does not epigastric and a cardiac evaluation will not be needed for atypical pain. Differential diagnoses for emergent causes of abdominal pain include but are not limited to AAA, bowel obstruction, rectal bleed, intra-abdominal trauma, mass, colitis, diverticulitis. Patient is requesting pain and nausea medicine upon arrival. Work up was reviewed and work-up unremarkable. Patient has a history of fatty liver which appears to be stable. Patient's test results and vitals while in the ED were fully reviewed and discussed with the patient. Patient is stable and at this time does not need admission to the hospital. We have discussed strict return precautions and the importance of following up with their Primary Care Physician. Patient stated understanding and was given an opportunity to ask any questions. Patient is in agreement with plan. Dragon Disclaimer: Dragon Disclaimer: This electronic medical record was generated, in whole or in part, using a voice recognition dictation system. Departure Departure Impression: Primary Impression: Abdominal pain, generalized Disposition: HOME / SELF CARE / HOMELESS Condition: STABLE Referrals: ANUSHKA NEWELL MD (PCP) Patient Instructions: Abdominal Pain Scripts Hyoscyamine Sulfate (LEVSIN-SL) 0.125 Mg Tab.subl 2-Nov TAB SL PRN Q4HRS PRN for pain for 5 Days, #60 TAB 0 Refills Prov: SUJATA HUSAIN MD 04/18/21 SUJATA HUSAIN MD April 18, 2021 17:06
--- NOTE | 2021-04-18 17:21 | RAD ---
Exam: CT abdomen and pelvis with contrast INDICATION: Abdominal pain, elderly TECHNIQUE: Sequential axial images through the abdomen and pelvis obtained following the administrati on of 75 mL of Isovue-370 IV contrast. Sagittal and coronal reformatted images were reconstructed fro m the axial data and reviewed. Exposure: One or more of the following in the visualized dose reduction techniques were utilized for this examination: 1. Automated exposure control 2. Adjustment of the MA and/or KV according to patient size 3. Use of iterative of reconstructive technique Comparisons: 08/04/2015 FINDINGS: Heart size is normal. No pericardial effusion. Strandy opacities at dependent portion lungs likely re presenting atelectasis. No pleural effusion. Diffuse hepatic steatosis. Spleen, pancreas, and adrenals are unremarkable. Gallbladder surgically ab sent. No perinephric inflammation or hydronephrosis. No renal or ureteral calculi are identified. Bladder is partially distended and appears thin-walled. Prostate is not enlarged. Few scattered diverticula are noted within the sigmoid colon and descending colon without evidence of acute diverticulitis. Small bowel is unremarkable. Appendix is not identified. No free intra-abdomin al air or fluid. No obstruction. Abdominal aorta has a normal course and caliber. Abdominal vasculature is patent. No enlarged intra-abdominal lymph nodes are identified. No suspicious osseous lesions or acute fractures. IMPRESSION: 1. No acute process identified within the abdomen or pelvis. 2. Diffuse hepatic steatosis. 3. Diverticulosis without evidence of acute diverticulitis. Electronically signed by: Ravinder Smith MD (04/18/2021 5:19 PM) [id number]
[2021-04-18] MEDS ORDERED: HYOS0.1265 SL (17:55)
[2021-04-18 18:06] VITALS: BP 157/77
[2021-04-18] MEDS ORDERED: HYOSCYAMINE 0.125 MG TAB.RAPDIS PO ONE (18:15)
== END 2021-04-18 18:13 | disposition home or self-care (01) ==
LOC: ER 14:20
DX: R10.84 Generalized abdominal pain (principal); K59.00 Constipation, unspecified; E78.00 Pure hypercholesterolemia, unspecified; Z90.89 Acquired absence of other organs; Z90.49 Acquired absence of other specified parts of digestive tract; Z88.8 Allergy status to other drugs, medicaments and biological substances
CPT/HCPCS: 36415; 74177; 80053; 81001; 83690; 85025; 96374; 96375; 99285; J2270; J2405; J7030; Q9966; Q9967